=== PATIENT | female | born 1955 | race Caucasian/White ===

== ENCOUNTER 2019-07-20 18:28 | Inpatient (IN) | payer BC ==
[2019-07-20] MEDS ORDERED: Ondansetron PF 4 MG/2 ML Vial ONE (19:51)
[2019-07-20] MEDS ORDERED: Loperamide HCl 2 MG CAP ONE (20:09)
[2019-07-20 20:22] LABS: Band 5 % (5-11); Hemoglobin 15.8 g/dL (12.0-16.0); Lymphocytes 4 % (21-51); MDiff Complete? YES; Mean Corpuscular Volume 90.8 fL (78.0-98.0); Mean Platelet Volume 8.7 fL (7.4-10.4); Monocytes 5 % (0-10); Neutrophil 86 % (42-75); Platelet Count 252 thou/uL (130-400); Platelet Morphology Comment Appears Adequate; Red Blood Cell (RBC) Count 5.27 mill/uL (4.20-5.40); White Blood Cell (WBC) Count 16.3 thou/uL (4.8-10.8)
[2019-07-20] MEDS ORDERED: metroNIDAZOLE 500 MG/100 ML BAG ONE (20:43)
[2019-07-20] MEDS ORDERED: Lorazepam 2 MG/ML VIAL ONE (20:52)
[2019-07-20 20:55] LABS: ALT (SGPT) 25 U/L (8-55); AST (SGOT) 32 U/L (5-34); Albumin 4.7 g/dL (3.4-4.8); Alkaline Phosphatase 76 U/L (40-110); Anion Gap 20 mmol/L (10-20); BUN (Urea Nitrogen) 10 mg/dL (9.8-20.1); Bilirubin, Total 0.3 mg/dL (0.2-1.2); CK (CPK) 67 U/L (29-168); Calc. Creatinine Clearance 0 mL/min (70-130); Calcium 9.7 mg/dL (7.8-10.44); Carbon Dioxide 20 mmol/L (23-31); Chloride 106 mmol/L (98-107); Estimated GFR-MDRD 78; Globulin 3.5 g/dL (2.4-3.5); Glucose 137 mg/dL (80-115); Potassium 5.1 mmol/L (3.5-5.1); Protein, Total 8.2 g/dL (6.0-8.3); Sodium 141 mmol/L (136-145)
--- NOTE | 2019-07-20 21:24 | CT ---
CT of abdomen and pelvis: 07/20/2019 COMPARISON: None HISTORY: Nausea, vomiting, abdominal pain TECHNIQUE: Axial CT imaging at 5 mm intervals from lung bases through pubic symphysis with IV contras t. Coronal and sagittal reformatted imaging obtained. FINDINGS: Cholecystectomy clips are present. Imaged lung bases are unremarkable. No free intraperiton eal air or fluid. Hepatic parenchyma is hypodense, suggesting hepatic steatosis. There is a lobulated hypodense lesion within the left lobe of the liver measuring up to 3.9 cm. Its [place]oun[place] u nits suggest a mildly complex cyst. However, it is incompletely assessed on this examination and thus, follow-up hepatic mass protocol CT examination advised. The spleen, pancreas, adrenal glands, a nd kidneys demonstrate no acute findings. There is fluid within a mildly prominent stomach. Fluid-filled nondilated small bowel loops are noted within the abdomen/pelvis. The appendix is not discretely visualized but no right lower quadrant inflammatory change is seen. Th ere is sigmoid diverticulosis without evidence for diverticulitis. The vascular structures of the abdomen/pelvis appear patent. IVC filter present. There is postoperative hardware within the lower lumbar spine and traversing the sacroiliac joint on the right. No worrisome lytic or blastic bone lesion. IMPRESSION: Multiple incidental findings as detailed above. No evidence for acute intra-abdominal/pel mee pathology. CODE T
[2019-07-20] MEDS ORDERED: HYDROcodone/Acetaminophen 5/325 mg Tablet ONE (23:08)
[2019-07-20] MEDS ORDERED: Acetaminophen 500 MG TAB ONE (23:08)
[2019-07-20 23:45] LABS: Lactic Acid 4.1 mmol/L (0.5-2.2)
[2019-07-21] MEDS ORDERED: MEROPENEM 1 GM/50 ML 1 GM in Premix Bag 1 BAG IVPB SCH (00:15)
--- NOTE | 2019-07-21 00:40 | HP ---
PRIMARY CARE PROVIDER: Dr. Jensen. CHIEF COMPLAINT: Nausea, vomiting, and diarrhea. HISTORY OF PRESENT ILLNESS: This is a 63-year-old female, who presents to [facility] Emergency Department with essentially sudden onset of nausea, vomiting, abdominal cramping with diarrhea. Patient states her symptoms began abruptly approximately at 1400 hours on 07/20/2019, without warning. Patient states she traveled recently to her daughters for the holidays, but states no one in the family has similar symptoms. Patient denied taking any new medications or any recent exposure history. Patient denied any recent surgical intervention and most recently had a back procedure in March 2019. Patient denied any documented fever, chills, cough, or shortness of breath. Patient denied taking any home medication remedies. Patient states she is on chronic pain medication for her back problems including a fentanyl patch. Patient denied taking extra medications currently. In the emergency room, patient underwent CT imaging of the abdomen and pelvis showing no acute process or evidence of bowel obstruction. Patient received IV fluids x2 L in addition to Ativan 1 mg IV push, Flagyl 500 mg x1 dose, Imodium, and Zofran. The patient was noted with multiple loose bowel movements in the emergency room. Patient denied any recent antibiotic exposure. PAST MEDICAL HISTORY: 1. Chronic pain syndrome, on chronic narcotic therapy. 2. Chronic back pain. 3. Hypertension. 4. Hyperlipidemia. 5. Anxiety disorder. PAST SURGICAL HISTORY: Status post multiple back surgeries, most recently March. CURRENT MEDICATIONS: 1. Percocet 10/325 mg one tablet p.o. t.i.d. 2. Methocarbamol 750 mg p.o. t.i.d. 3. Lovastatin 40 mg p.o. daily. 4. Atenolol 50 mg p.o. b.i.d. 5. Melatonin 10 mg p.o. at bedtime. 6. Temazepam 7.5 mg p.o. b.i.d. 7. Ambien 12.5 mg p.o. daily. 8. Simethicone 180 mg p.o. daily. 9. Gabapentin 300 mg p.o. t.i.d. 10. Xarelto 15 mg p.o. daily. 11. Zofran 8 mg p.o. daily p.r.n. 12. Omeprazole 20 mg p.o. daily. 13. Fentanyl patch 25 mcg transdermally q.72 hours. ALLERGIES: CIPROFLOXACIN. FAMILY HISTORY: No inheritable diseases per patient report. SOCIAL HISTORY: Resides in the [place], [place] area. Occasional alcohol use. No illicit drug use. No tobacco use. REVIEW OF SYSTEMS: CONSTITUTIONAL: Negative for weight loss or gain, ability to conduct usual activities. SKIN: Negative for rash, itching. EYES: Negative for double vision, pain. ENT/MOUTH: Negative for nose bleeding, neck stiffness, pain, tenderness. CARDIOVASCULAR: Negative for palpitations, dyspnea on exertion, orthopnea. RESPIRATORY: Negative for shortness of breath, wheezing, cough, hemoptysis, fever or night sweats. GASTROINTESTINAL: Negative for poor appetite, abdominal pain, heartburn, nausea, vomiting, constipation, or diarrhea. GENITOURINARY: Negative for urgency, frequency, dysuria, nocturia. MUSCULOSKELETAL: Negative for pain, swelling. NEUROLOGIC/PSYCHIATRIC: Negative for anxiety, depression. ALLERGY/IMMUNOLOGIC: Negative for skin rash, bleeding tendency. Otherwise, negative, except as stated per HPI. PHYSICAL EXAMINATION: VITAL SIGNS: On admission, blood pressure 157/84, pulse 118, respiratory rate 22, temperature 98.3 degrees Fahrenheit, and O2 saturation 95% on room air. GENERAL APPEARANCE: This is a 63-year-old female, ill appearing, alert, and responsive, in moderate distress. HEENT: Pupils are equal, round, and reactive to light and accommodation. Extraocular muscles are intact. No scleral icterus. No conjunctival injection. Nares are patent. OP is clear. Oral mucosa is dry. NECK: Supple. No cervical adenopathy. No thyromegaly. No carotid bruits. No JVD appreciated. Cervical spine with full active and passive range of motion. No meningeal signs noted. CHEST: Lungs are clear to auscultation bilaterally. CARDIOVASCULAR: S1, S2 without noted murmur, rub, or gallop. ABDOMEN: Obese with mild tenderness to palpation diffusely. Bowel sounds are positive in all 4 quadrants. No palpable mass. No rebound or guarding noted. EXTREMITIES: Warm and dry with fair turgor. No clubbing, cyanosis, or asymmetric edema appreciated. Pulses palpable distally at the dorsalis pedis, posterior tibial, and popliteal arteries bilaterally. Capillary refill less than 2 seconds. NEUROLOGIC: Cranial nerves 2 through 12 are grossly intact. No focal or lateralizing signs appreciated. PERTINENT LABORATORY AND X-RAY FINDINGS: Sodium 141, potassium 5.1, chloride 106, CO2 of 20, BUN 10, creatinine 0.75, and estimated GFR of 78. Lactic acid level 3.9. Calcium 9.7. LFTs within normal limits. CBC showed a white blood cell count of 16.3, hemoglobin 15.8, hematocrit 48, and platelet count 252, with 86% neutrophils. Influenza A and B antigen dated 07/20/2019, negative. CT of the abdomen and pelvis dated 07/20/2019, showed multiple incidental findings without acute process. Please see dictated report for full details. Telemetry monitoring shows sinus tachycardia with heart rates in the low 100s. ASSESSMENT AND PLAN: 1. Sepsis secondary to gastroenteritis. The patient will be admitted to the medical floor. We will continue empiric antibiotic coverage with meropenem 1 g IV q.8 hours. Blood cultures x2 pending. Check stool studies to rule out underlying infectious process. Continue intravenous normal saline at 125 mL/h. Continue general sepsis protocol and repeat lactic acid level in 3 hours. 2. Acute gastroenteritis. Exact etiology unclear. Suspect as presumed infectious given sepsis criteria as noted in #1. Continue meropenem 1 g IV q.8 hours. Continue IV fluids as outlined previously. N.p.o., except for medications and sips of water. 3. Nausea and vomiting. Suspect secondary to sepsis secondary to gastroenteritis and acute gastroenteritis. Zofran 4 mg IV q.6 hours p.r.n. N.p.o. status. 4. Acute kidney injury. Suspect secondary to dehydration. Continue volume replacement with IV fluids and monitor serial creatinine. 5. Chronic pain syndrome. We will confirm home medication regimen. Questionable component of withdrawal symptoms. 6. Prophylaxis. SCDs while in bed. Pepcid 20 mg IV b.i.d. 7. Code status. Full. Surrogate medical decision maker is patient's son. Job ID: [id number]
[2019-07-21] MEDS ORDERED: Ondansetron ODT 4 MG TAB SL PRN (01:32)
[2019-07-21] MEDS ORDERED: Acetaminophen 325 MG TAB PO PRN (01:32)
[2019-07-21] MEDS ORDERED: HYDROcodone/Acetaminophen 5/325 mg Tablet PO PRN ×2 (01:32)
[2019-07-21] MEDS ORDERED: Labetalol HCl 100 MG/20 ML VIAL SLOW IVP PRN (01:47)
[2019-07-21] MEDS ORDERED: Sodium Chloride 0.9% 1,000 ML IV SCH (01:47)
[2019-07-21] MEDS ORDERED: Acetaminophen 500 MG TAB PO PRN (01:47)
[2019-07-21] MEDS: Sodium Chloride 0.9% 1,000 ML IV SCH ×2 (01:51→03:57)
[2019-07-21 01:53] VITALS: BMI 42.5
[2019-07-21] MEDS: Ondansetron PF 4 MG/2 ML Vial IVP PRN ×3 (02:13→16:58)
[2019-07-21 05:42] LABS: Band 5 % (5-11); Hemoglobin 13.7 g/dL (12.0-16.0); Lymphocytes 6 % (21-51); MDiff Complete? YES; Mean Corpuscular HGB CONC 33.3 g/dL (32.0-36.0); Mean Corpuscular Hemoglobin 30.5 pg (27.0-31.0); Mean Corpuscular Volume 91.7 fL (78.0-98.0); Mean Platelet Volume 8.2 fL (7.4-10.4); Metamyelocyte 1 % (0-0); Monocytes 3 % (0-10); Neutrophil 85 % (42-75); Platelet Count 210 thou/uL (130-400); Platelet Morphology Comment Appears Adequate; RBC Morphology Normal; Red Blood Cell (RBC) Count 4.49 mill/uL (4.20-5.40); White Blood Cell (WBC) Count 8.3 thou/uL (4.8-10.8)
[2019-07-21 05:47] LABS: Lactic Acid 3.2 mmol/L (0.5-2.2)
[2019-07-21 05:51] LABS: ALT (SGPT) 21 U/L (8-55); AST (SGOT) 21 U/L (5-34); Albumin 3.7 g/dL (3.4-4.8); Alkaline Phosphatase 55 U/L (40-110); Anion Gap 17 mmol/L (10-20); BUN (Urea Nitrogen) 11 mg/dL (9.8-20.1); Bilirubin, Total 0.4 mg/dL (0.2-1.2); Calc. Creatinine Clearance 172 mL/min (70-130); Calcium 8.3 mg/dL (7.8-10.44); Carbon Dioxide 20 mmol/L (23-31); Chloride 109 mmol/L (98-107); Estimated GFR-MDRD 89; Globulin 2.7 g/dL (2.4-3.5); Glucose 116 mg/dL (80-115); Potassium 3.7 mmol/L (3.5-5.1); Protein, Total 6.4 g/dL (6.0-8.3); Sodium 142 mmol/L (136-145)
--- NOTE | 2019-07-21 08:09 | PDOC.HOSPP ---
- Subjective Encounter Date: 07/21/19 Encounter Time: 08:07 Subjective: 63 y/o female with chronic back pain s/p surgery on chronic narcotics, Palpitation on atenolol admitted with acute onset of nausea, vomiting and frerquent loose stools associated with crampy abdominal pain. Patient denied fever, hematochezia and hematemesis. Vomiting has improved but nausea, abdominal pain/ and diarrhea persist. - Objective Vital Signs & Weight: Vital Signs (12 hours) Temp Pulse Resp BP Pulse Ox 07/21/19 04:11 99.1 F 113 H 18 165/70 H 94 L 07/21/19 03:06 98 07/21/19 01:30 98.5 F 116 H 20 140/77 97 Weight Weight 279 lb 14.4 oz I&O: 07/20/19 07/21/19 07/22/19 06:59 06:59 06:59 Intake Total 850 Output Total 2 Balance 848 Result Diagrams: 07/21/19 05:13 07/21/19 05:13 Hospitalist ROS - Medication Medications: Active Medications Generic Name Dose Route Start Last Admin Trade Name Freq PRN Reason Stop Dose Admin Hydrocodone Bitart/Acetaminophen 2 tab 07/21/19 01:32 07/21/19 02:15 [place] 5/325 PO 07/21/19 11:00 2 tab Q6H PRN Administration Severe Pain (7-10) Sodium Chloride 1,000 mls @ 150 mls/hr 07/21/19 01:32 07/21/19 03:57 Normal Saline 0.9% IV 07/21/19 11:00 Not Given .Q6H40M LIANNE Sodium Chloride 1,000 mls @ 125 mls/hr 07/21/19 01:47 07/21/19 02:02 Normal Saline 0.9% IV Not Given .Q8H LIANNE Ondansetron HCl 4 mg 07/21/19 01:32 07/21/19 02:13 Zofran IVP 07/21/19 11:00 4 mg Q6H PRN Administration Nausea/Vomiting - Exam General Appearance: awake alert General - other findings: obese Eye: anicteric sclera ENT: normocephalic atraumatic Neck: symmetric, no JVD Heart: RRR Heart - other findings: tachycardic Respiratory: no wheezes, no rales, no ronchi, normal chest expansion, no tachypnea Gastrointestinal: soft, non-distended, normal bowel sounds Gastrointestinal - other findings: diffuse abdominal tenderness especially lower abdomen Extremities: no cyanosis, no edema Neurological: cranial nerve grossly intact, no focal deficits, no new deficit Psychiatric: A&O x 3 Hosp A/P (1) Acute infective gastroenteritis Code(s): A09 - INFECTIOUS GASTROENTERITIS AND COLITIS, UNSPECIFIED Status: Acute (2) Metabolic acidosis Code(s): E87.2 - ACIDOSIS Status: Acute (3) Sepsis Code(s): A41.9 - SEPSIS, UNSPECIFIED ORGANISM Status: Acute (4) HTN (hypertension) Code(s): I10 - ESSENTIAL (PRIMARY) HYPERTENSION Status: Acute (5) Morbid obesity Code(s): E66.01 - MORBID (SEVERE) OBESITY DUE TO EXCESS CALORIES Status: Acute (6) Chronic back pain Code(s): M54.9 - DORSALGIA, UNSPECIFIED; G89.29 - OTHER CHRONIC PAIN Status: Acute (7) Anxiety Code(s): F41.9 - ANXIETY DISORDER, UNSPECIFIED Status: Acute (8) Palpitations Code(s): R00.2 - PALPITATIONS Status: Acute (9) DVT (deep venous thrombosis) Code(s): I82.409 - ACUTE EMBOLISM AND THOMBOS UNSP DEEP VN UNSP LOWER EXTREMITY Status: Acute - Plan Restart atenolol for tachycardia Suibstitute NS with LR due to worsening hyperchloremic acidosis Continue antibiotics Restart xarelto Antiemetic as needed Analgesic as needed Await stool cultures. Follow electrolytes and renal function.
[2019-07-21] MEDS: Lorazepam 1 MG TAB PO SCH ×2 (09:17→21:26)
[2019-07-21] MEDS: Famotidine/PF 20 mg/2ml Vial SLOW IVP SCH ×2 (09:17→21:27)
[2019-07-21] MEDS: Atenolol 50 MG TAB PO SCH ×2 (09:18→21:25)
[2019-07-21] MEDS: MEROPENEM 1 GM/50 ML 1 GM in Premix Bag 1 BAG IVPB SCH ×2 (09:29→16:54)
[2019-07-21] MEDS: Rivaroxaban 15 MG TAB PO SCH (10:18)
[2019-07-21] MEDS: oxyCODONE/Acetaminophen 5 mg/325 mg Tablet PO PRN ×2 (14:27→23:50)
[2019-07-21] MEDS: Lactated Ringer's 1,000 ML IV SCH ×2 (16:18→16:54)
[2019-07-21] MEDS ORDERED: Zolpidem Tartrate 5 MG TAB PO SCH (21:00)
[2019-07-21] MEDS: Pregabalin 75 MG CAP PO SCH (21:25)
[2019-07-21] MEDS: Melatonin 3 MG TAB PO SCH (23:15)
[2019-07-22] MEDS: MEROPENEM 1 GM/50 ML 1 GM in Premix Bag 1 BAG IVPB SCH ×3 (00:54→17:25)
[2019-07-22] MEDS: Lactated Ringer's 1,000 ML IV SCH ×3 (00:55→16:25)
[2019-07-22 05:14] LABS: ALT (SGPT) 24 U/L (8-55); AST (SGOT) 30 U/L (5-34); Albumin 3.4 g/dL (3.4-4.8); Alkaline Phosphatase 46 U/L (40-110); Anion Gap 12 mmol/L (10-20); BUN (Urea Nitrogen) 7 mg/dL (9.8-20.1); Bilirubin, Total 0.3 mg/dL (0.2-1.2); Calc. Creatinine Clearance 183 mL/min (70-130); Calcium 8.3 mg/dL (7.8-10.44); Carbon Dioxide 25 mmol/L (23-31); Chloride 108 mmol/L (98-107); Estimated GFR-MDRD Greater than 90; Globulin 2.3 g/dL (2.4-3.5); Glucose 87 mg/dL (80-115); Magnesium 1.5 mg/dL (1.6-2.6); Phosphorus 2.4 mg/dL (2.3-4.7); Potassium 3.2 mmol/L (3.5-5.1); Protein, Total 5.7 g/dL (6.0-8.3); Sodium 142 mmol/L (136-145)
[2019-07-22] MEDS: Ondansetron ODT 4 MG TAB PO PRN ×2 (07:40→16:02)
[2019-07-22] MEDS ORDERED: Magnesium Sulfate 4 GM in Sodium Chloride 0.9% 250 ML 250 ML IVPB SCH (08:00)
[2019-07-22] MEDS: Lorazepam 1 MG TAB PO SCH ×2 (08:59→20:13)
[2019-07-22] MEDS: Pregabalin 75 MG CAP PO SCH ×3 (08:59→20:15)
[2019-07-22] MEDS: Rivaroxaban 15 MG TAB PO SCH (08:59)
[2019-07-22] MEDS: Famotidine/PF 20 mg/2ml Vial SLOW IVP SCH ×2 (09:00→20:13)
[2019-07-22] MEDS: Atenolol 50 MG TAB PO SCH ×2 (09:00→20:13)
[2019-07-22 09:49] LABS: Lactic Acid 1.3 mmol/L (0.5-2.2)
[2019-07-22] MEDS: oxyCODONE/Acetaminophen 5 mg/325 mg Tablet PO PRN ×2 (10:22→20:11)
--- NOTE | 2019-07-22 14:12 | PDOC.HOSPP ---
- Subjective Encounter Date: 07/22/19 Encounter Time: 14:08 Subjective: 63 y/o female with chronic back pain s/p surgery on chronic narcotics, palpitation on atenolol admitted with acute onset of nausea, vomiting and frequent loose stools associated with crampy abdominal pain. Feeling better but still having loose stools at reduced frequency. Patient denied fever, hematochezia and hematemesis. - Objective Vital Signs & Weight: Vital Signs (12 hours) Temp Pulse Resp BP Pulse Ox 07/22/19 11:41 98.6 F 62 14 136/64 94 L 07/22/19 09:00 82 07/22/19 07:25 98.6 F 82 18 142/65 H 92 L Weight Weight 279 lb 14.4 oz I&O: 07/21/19 07/22/19 07/23/19 06:59 06:59 06:59 Intake Total 850 3390 Output Total 2 Balance 848 3390 Result Diagrams: 07/21/19 05:13 07/22/19 04:35 Hospitalist ROS - Medication Medications: Active Medications Generic Name Dose Route Start Last Admin Trade Name Eleazarq PRN Reason Stop Dose Admin Atenolol 50 mg 07/21/19 09:00 07/22/19 09:00 Tenormin PO 50 mg BID LIANNE Administration Famotidine 20 mg 07/21/19 09:00 07/22/19 09:00 Pepcid SLOW IVP 20 mg Q12HR LIANNE Administration Fentanyl 12 mcg 07/21/19 08:30 07/21/19 09:19 Duragesic TD Not Given Q3D LIANNE Meropenem 1 gm/ Device 50 mls @ 100 mls/hr 07/21/19 09:00 07/22/19 08:59 IVPB 50 mls 0100,0900,1700 LIANNE Administration Lactated Ringer's 1,000 mls @ 50 mls/hr 07/22/19 07:59 07/22/19 09:00 Lactated Ringer's IV Not Given .Q20H LIANNE Lorazepam 1 mg 07/21/19 09:00 07/22/19 08:59 Ativan PO 1 mg BID LIANNE Administration Melatonin 9 mg 07/21/19 21:00 07/21/19 23:15 Melatonin PO Not Given QPM LIANNE Ondansetron HCl 4 mg 07/21/19 01:47 07/22/19 07:40 Zofran Odt PO 4 mg Q6H PRN Administration Nausea/Vomiting Ondansetron HCl 4 mg 07/21/19 01:47 07/21/19 16:58 Zofran IVP 4 mg Q6H PRN Administration Nausea/Vomiting Oxycodone/Acetaminophen 1 tab 07/21/19 08:28 07/22/19 10:22 Percocet 5/325 PO 1 tab TID PRN Administration Mild-Moderate Pain (1-5) Potassium Chloride 40 meq 07/22/19 12:00 07/22/19 12:47 Klor-Con PO 07/22/19 18:01 40 meq Q6HR LIANNE Administration Pregabalin 75 mg 07/21/19 21:00 07/22/19 08:59 Lyrica PO 75 mg TID LIANNE Administration Rivaroxaban 15 mg 07/21/19 09:00 07/22/19 08:59 Xarelto PO 15 mg DAILY LIANNE Administration Sodium Chloride 10 ml 07/21/19 21:00 07/22/19 09:01 Flush - Normal Saline IVF 10 ml Q12HR LIANNE Administration - Exam General Appearance: awake alert General - other findings: obese Eye: anicteric sclera ENT: normocephalic atraumatic, moist mucosa Neck: symmetric, no JVD Heart: RRR Respiratory: no wheezes, no ronchi, normal chest expansion, no tachypnea Gastrointestinal: soft, non-tender, non-distended, normal bowel sounds Extremities: no cyanosis, no edema Neurological: cranial nerve grossly intact, no focal deficits Psychiatric: A&O x 3 Hosp A/P (1) Acute infective gastroenteritis Code(s): A09 - INFECTIOUS GASTROENTERITIS AND COLITIS, UNSPECIFIED Status: Acute (2) Metabolic acidosis Code(s): E87.2 - ACIDOSIS Status: Acute (3) Sepsis Code(s): A41.9 - SEPSIS, UNSPECIFIED ORGANISM Status: Acute (4) HTN (hypertension) Code(s): I10 - ESSENTIAL (PRIMARY) HYPERTENSION Status: Acute (5) Morbid obesity Code(s): E66.01 - MORBID (SEVERE) OBESITY DUE TO EXCESS CALORIES Status: Acute (6) Chronic back pain Code(s): M54.9 - DORSALGIA, UNSPECIFIED; G89.29 - OTHER CHRONIC PAIN Status: Acute (7) Anxiety Code(s): F41.9 - ANXIETY DISORDER, UNSPECIFIED Status: Acute (8) Palpitations Code(s): R00.2 - PALPITATIONS Status: Acute (9) DVT (deep venous thrombosis) Code(s): I82.409 - ACUTE EMBOLISM AND THOMBOS UNSP DEEP VN UNSP LOWER EXTREMITY Status: Acute (10) Hypokalemia Code(s): E87.6 - HYPOKALEMIA Status: Acute - Plan Replete serum potassium with oral KCL Replete serum magnesium wiyth magnesium sulphate Continue atenolol for tachycardia Advance diet as tolerated DC IV fluid Continue antibiotics Continue xarelto Antiemetic and analgesic as needed Follow electrolytes and renal function.
[2019-07-22] MEDS: Melatonin 3 MG TAB PO SCH (20:14)
[2019-07-22] MEDS: Zolpidem Tartrate 5 MG TAB PO SCH (20:15)
[2019-07-23] MEDS: MEROPENEM 1 GM/50 ML 1 GM in Premix Bag 1 BAG IVPB SCH (02:00)
[2019-07-23] MEDS: Ondansetron PF 4 MG/2 ML Vial IVP PRN ×2 (02:28→09:13)
[2019-07-23] MEDS: oxyCODONE/Acetaminophen 5 mg/325 mg Tablet PO PRN ×3 (04:15→22:16)
[2019-07-23 04:54] LABS: Hemoglobin 13.3 g/dL (12.0-16.0); Mean Corpuscular Hemoglobin 29.6 pg (27.0-31.0); Mean Corpuscular Volume 92.4 fL (78.0-98.0); Mean Platelet Volume 7.7 fL (7.4-10.4); Platelet Count 195 thou/uL (130-400); RBC Distribution Width 11.7 % (11.5-14.5); Red Blood Cell (RBC) Count 4.48 mill/uL (4.20-5.40); White Blood Cell (WBC) Count 5.9 thou/uL (4.8-10.8)
[2019-07-23 05:14] LABS: Albumin 3.7 g/dL (3.4-4.8); Anion Gap 13 mmol/L (10-20); BUN (Urea Nitrogen) 6 mg/dL (9.8-20.1); BUN/Creatinine Ratio 9.38; Calc. Creatinine Clearance 180 mL/min (70-130); Calcium 8.7 mg/dL (7.8-10.44); Carbon Dioxide 26 mmol/L (23-31); Chloride 105 mmol/L (98-107); Estimated GFR-MDRD Greater than 90; Glucose 93 mg/dL (80-115); Phosphorus 2.5 mg/dL (2.3-4.7); Potassium 3.9 mmol/L (3.5-5.1); Sodium 140 mmol/L (136-145)
[2019-07-23] MEDS: metroNIDAZOLE 500 MG TAB PO SCH ×3 (09:08→20:31)
[2019-07-23] MEDS: Rivaroxaban 15 MG TAB PO SCH (09:08)
[2019-07-23] MEDS: Atenolol 50 MG TAB PO SCH ×2 (09:08→20:32)
[2019-07-23] MEDS: AMOXicillin 250 MG CAP PO SCH ×3 (09:08→20:30)
[2019-07-23] MEDS: Lorazepam 1 MG TAB PO SCH ×2 (09:08→20:32)
[2019-07-23] MEDS: Pregabalin 75 MG CAP PO SCH ×3 (09:08→20:30)
--- NOTE | 2019-07-23 15:49 | PDOC.HOSPP ---
- Subjective Encounter Date: 07/23/19 Encounter Time: 08:47 Subjective: 63 y/o female with chronic back pain s/p surgery on chronic narcotics, palpitation on atenolol admitted with acute onset of nausea, vomiting and frequent loose stools associated with crampy abdominal pain. Stool consistency and frequency are improving. Patient denied fever, hematochezia and hematemesis. - Objective Vital Signs & Weight: Vital Signs (12 hours) Temp Pulse Resp BP BP Pulse Ox 07/23/19 12:55 98.5 F 88 18 131/60 96 07/23/19 09:08 62 141/65 H 07/23/19 09:00 98.3 F 58 L 18 143/66 H 95 07/23/19 08:00 99 Weight Weight 279 lb 14.4 oz I&O: 07/22/19 07/23/19 07/24/19 06:59 06:59 06:59 Intake Total 3390 4427 Output Total 1500 Balance 3390 2927 Result Diagrams: 07/23/19 04:36 07/23/19 04:36 Hospitalist ROS - Medication Medications: Active Medications Generic Name Dose Route Start Last Admin Trade Name Freq PRN Reason Stop Dose Admin Amoxicillin 500 mg 07/23/19 09:00 07/23/19 15:42 Amoxil PO 500 mg TID LIANNE Administration Atenolol 50 mg 07/21/19 09:00 07/23/19 09:08 Tenormin PO 50 mg BID LIANNE Administration Fentanyl 12 mcg 07/21/19 08:30 07/21/19 09:19 Duragesic TD Not Given Q3D LIANNE Lorazepam 1 mg 07/21/19 09:00 07/23/19 09:08 Ativan PO 1 mg BID LIANNE Administration Melatonin 9 mg 07/21/19 21:00 07/22/19 20:14 Melatonin PO 9 mg QPM LIANNE Administration Metronidazole 500 mg 07/23/19 09:00 07/23/19 15:43 Flagyl PO 500 mg TID LIANNE Administration Ondansetron HCl 4 mg 07/21/19 01:47 07/22/19 16:02 Zofran Odt PO 4 mg Q6H PRN Administration Nausea/Vomiting Ondansetron HCl 4 mg 07/21/19 01:47 07/23/19 09:13 Zofran IVP 4 mg Q6H PRN Administration Nausea/Vomiting Oxycodone/Acetaminophen 1 tab 07/21/19 08:28 07/23/19 13:13 Percocet 5/325 PO 1 tab TID PRN Administration Mild-Moderate Pain (1-5) Pregabalin 75 mg 07/21/19 21:00 07/23/19 15:43 Lyrica PO 75 mg TID LIANNE Administration Rivaroxaban 15 mg 07/21/19 09:00 07/23/19 09:08 Xarelto PO 15 mg DAILY LIANNE Administration Sodium Chloride 10 ml 07/21/19 21:00 07/23/19 09:12 Flush - Normal Saline IVF Not Given Q12HR LIANNE Zolpidem Tartrate 10 mg 07/22/19 21:00 07/22/19 20:15 Ambien PO 10 mg QPM LIANNE Administration - Exam General Appearance: awake alert Eye: anicteric sclera ENT: normocephalic atraumatic Neck: symmetric, no JVD Heart: RRR Respiratory: no wheezes, no rales, no ronchi, normal chest expansion Gastrointestinal: soft, non-distended, normal bowel sounds Gastrointestinal - other findings: mild upper quadrant tenderness Extremities: no cyanosis, no edema Neurological: cranial nerve grossly intact, normal sensation to touch, no focal deficits Psychiatric: A&O x 3 Hosp A/P (1) Acute infective gastroenteritis Code(s): A09 - INFECTIOUS GASTROENTERITIS AND COLITIS, UNSPECIFIED Status: Acute (2) Metabolic acidosis Code(s): E87.2 - ACIDOSIS Status: Acute (3) Sepsis Code(s): A41.9 - SEPSIS, UNSPECIFIED ORGANISM Status: Acute (4) HTN (hypertension) Code(s): I10 - ESSENTIAL (PRIMARY) HYPERTENSION Status: Acute (5) Morbid obesity Code(s): E66.01 - MORBID (SEVERE) OBESITY DUE TO EXCESS CALORIES Status: Acute (6) Chronic back pain Code(s): M54.9 - DORSALGIA, UNSPECIFIED; G89.29 - OTHER CHRONIC PAIN Status: Acute (7) Anxiety Code(s): F41.9 - ANXIETY DISORDER, UNSPECIFIED Status: Acute (8) Palpitations Code(s): R00.2 - PALPITATIONS Status: Acute (9) DVT (deep venous thrombosis) Code(s): I82.409 - ACUTE EMBOLISM AND THOMBOS UNSP DEEP VN UNSP LOWER EXTREMITY Status: Acute (10) Hypokalemia Code(s): E87.6 - HYPOKALEMIA Status: Acute - Plan DC IVF and IV antibiotic Start oral amoxicilin and flagyl Start regular diet. Continue xarelto Antiemetic and analgesic as needed Follow electrolytes and renal function. For discharge tomorrow if doing well on current treatments
[2019-07-23] MEDS: Ondansetron ODT 4 MG TAB PO PRN (18:13)
[2019-07-23] MEDS: Melatonin 3 MG TAB PO SCH (20:31)
[2019-07-24] MEDS: Zolpidem Tartrate 5 MG TAB PO SCH (00:20)
[2019-07-24] MEDS: Ondansetron ODT 4 MG TAB PO PRN (05:08)
[2019-07-24 05:49] LABS: Hemoglobin 13.2 g/dL (12.0-16.0); Mean Corpuscular HGB CONC 30.7 g/dL (32.0-36.0); Mean Corpuscular Hemoglobin 28.2 pg (27.0-31.0); Mean Corpuscular Volume 91.9 fL (78.0-98.0); Mean Platelet Volume 7.8 fL (7.4-10.4); Platelet Count 221 thou/uL (130-400); RBC Distribution Width 11.8 % (11.5-14.5); Red Blood Cell (RBC) Count 4.67 mill/uL (4.20-5.40); White Blood Cell (WBC) Count 7.5 thou/uL (4.8-10.8)
[2019-07-24 05:52] LABS: Anion Gap 12 mmol/L (10-20); BUN (Urea Nitrogen) 11 mg/dL (9.8-20.1); Calc. Creatinine Clearance 183 mL/min (70-130); Calcium 9.1 mg/dL (7.8-10.44); Carbon Dioxide 28 mmol/L (23-31); Chloride 105 mmol/L (98-107); Estimated GFR-MDRD Greater than 90; Glucose 94 mg/dL (80-115); Magnesium 1.9 mg/dL (1.6-2.6); Potassium 3.9 mmol/L (3.5-5.1); Sodium 141 mmol/L (136-145)
[2019-07-24 07:59] VITALS: BP 135/60; TEMP 98.2
[2019-07-24] MEDS: metroNIDAZOLE 500 MG TAB PO SCH (08:29)
[2019-07-24] MEDS: Atenolol 50 MG TAB PO SCH (08:29)
[2019-07-24] MEDS: Pregabalin 75 MG CAP PO SCH (08:30)
[2019-07-24] MEDS: Lorazepam 1 MG TAB PO SCH (08:31)
[2019-07-24] MEDS: Rivaroxaban 15 MG TAB PO SCH (08:32)
[2019-07-24] MEDS: AMOXicillin 250 MG CAP PO SCH (08:32)
== END 2019-07-24 10:29 | disposition home or self-care (01) | DRG 872 ==
LOC: ERS 18:28 → ONC 07-21 01:32
PROVIDERS: ADMIT Family Medicine; ATTEND Family Medicine
DX: A41.9 Sepsis, unspecified organism (principal); N17.9 Acute kidney failure, unspecified; E87.2 Acidosis; Z68.41 Body mass index [BMI] 40.0-44.9, adult; A09 Infectious gastroenteritis and colitis, unspecified; I10 Essential (primary) hypertension; E78.5 Hyperlipidemia, unspecified; F41.9 Anxiety disorder, unspecified; E86.0 Dehydration; G89.4 Chronic pain syndrome; E66.01 Morbid (severe) obesity due to excess calories; E87.6 Hypokalemia; Z88.1 Allergy status to other antibiotic agents; Z90.49 Acquired absence of other specified parts of digestive tract; Z86.718 Personal history of other venous thrombosis and embolism; Z79.01 Long term (current) use of anticoagulants; Z98.1 Arthrodesis status
CPT/HCPCS: 36415; 74177; 80048; 80053; 80069; 82274; 82550; 83605; 83630; 83735; 84100; 85007; 85025; 85027; 87045; 87046; 87324; 87427; 87449; 87804; 96361; 96365; 96367; 96375; J2060; J2185; J2405; J3475; J7050; Q0162; S0028

== ENCOUNTER 2019-12-27 14:32 | Outpatient (CLI) | payer BC ==
--- NOTE | 2019-12-27 15:28 | MMO ---
Right Breast MAMMO Unilat Diag DDI RT+ALEXIS. CLINICAL HISTORY: Patient is 64 years old and is seen for follow-up at short-interval from prior study. The patient has the following family history of breast cancer: sister, malignant (generic), LUNG, LIVER AND BRAIN and sister, malignant (generic), X2. The patient has no personal history of cancer. VIEWS: The views performed were: right craniocaudal with tomosynthesis; right mediolateral oblique with tomosynthesis; and right mediolateral with tomosynthesis. FILMS COMPARED: The present examination has been compared to prior imaging studies performed at [facility] on 06/01/2019, 06/12/2019 and 12/27/2019. This study has been interpreted with the assistance of computer-aided detection. MAMMOGRAM FINDINGS: There are scattered fibroglandular densities. There are no suspicious masses, suspicious calcifications, or new areas of architectural distortion. IMPRESSION: THERE IS NO MAMMOGRAPHIC EVIDENCE OF MALIGNANCY. A ROUTINE FOLLOW-UP MAMMOGRAM IN 6 MONTHS IS RECOMMENDED. THE RESULTS OF THIS EXAM WERE SENT TO THE PATIENT. ACR BI-RADS Category 2 - Benign finding MAMMOGRAPHY NOTE: 1. A negative mammogram report should not delay a biopsy if a dominant of clinically suspicious mass is present. 2. Approximately 10% to 15% of breast cancers are not detected by mammography. 3. Adenosis and dense breasts may obscure an underlying neoplasm. Reported by: LENY MURDOCK MD Electonically Signed: [id number]
--- NOTE | 2019-12-27 16:01 | ULT ---
RIGHT BREAST ULTRASOUND: HISTORY: Followup. FINDINGS: Correlation is made with mammogram of today and 06/12/2019. Comparison is made with the ultrasound o f 06/12/2019. Sonographic evaluation of the right breast between the 10 and 11 o'clock positions demonstrates a few small cysts about 5 cm from the nipple which are stable. IMPRESSION: BIRADS category 2 - benign findings. Return to annual screening mammography due in 6 months.
== END 2019-12-27 14:33 | disposition home or self-care (01) ==
LOC: BICMAMMO 14:32
PROVIDERS: ATTEND Family Medicine
DX: N63.10 Unspecified lump in the right breast, unspecified quadrant (principal)
CPT/HCPCS: 77066; G0279

== ENCOUNTER 2019-12-27 15:51 | Outpatient (CLI) | payer BC ==
--- NOTE | 2019-12-27 16:22 | RAD ---
EXAM: XR Lumbar Spine Min 4 View PROVIDED CLINICAL HISTORY: Sacroiliitis. History of low back surgery in surgery of pelvis. COMPARISON: None FINDINGS: Postoperative changes related to anterior as well as posterior fusion are seen involving the L4-5 and L5-S1 levels. Bipedicular screws and posterior rods transfix this level with anterior screws also present. Intradiscal prostheses are present at these levels. There are 3 metallic bars transfixing th e right sacroiliac joint. Slight retrolisthesis of L2 on L3 and L3 on L4 is present. There is correction of the retrolisthesis at the L2-3 level on flexion compared to extension. There is slight grade 1 anterolisthesis of L4 and L5. Vertebral body heights are within normal limits. No fracture is seen. IVC filter is noted in place at the L3-4 level. Surgical clips overlie the right upper quadr ant. IMPRESSION: 1. Postoperative changes lumbar spine and involving the right sacroiliac joint. 2. Slight retrolisthesis of L2 on L3 and L3 on L4 with slight grade 1 anterolisthesis of L4 on L5.
== END 2019-12-27 15:52 | disposition home or self-care (01) ==
LOC: BICRAD 15:51
PROVIDERS: ATTEND Orthopaedic Surgery
DX: M46.1 Sacroiliitis, not elsewhere classified (principal); M43.16 Spondylolisthesis, lumbar region; Z98.1 Arthrodesis status
CPT/HCPCS: 72110

== ENCOUNTER 2020-07-07 15:55 | Outpatient (CLI) | payer BC ==
--- NOTE | 2020-07-07 16:45 | MMO ---
Bilateral MAMMO Bilat Screen DDI+ALEXIS. CLINICAL HISTORY: Patient is 64 years old and is seen for screening. The patient has the following family history of breast cancer: sister, malignant (generic), LUNG, LIVER AND BRAIN and sister, malignant (generic), X2. The patient has no personal history of cancer. VIEWS: The views performed were: bilateral craniocaudal with tomosynthesis and bilateral mediolateral oblique with tomosynthesis. FILMS COMPARED: The present examination has been compared to prior imaging studies performed at [facility] on 06/12/2019 and 12/27/2019. This study has been interpreted with the assistance of computer-aided detection. MAMMOGRAM FINDINGS: There are scattered fibroglandular densities. Benign calcifications are noted bilaterally. Focal asymmetry in the right upper outer breast is stable. There are no suspicious masses, suspicious calcifications, or new areas of architectural distortion. IMPRESSION: THERE IS NO MAMMOGRAPHIC EVIDENCE OF MALIGNANCY. A ROUTINE FOLLOW-UP MAMMOGRAM IN 1 YEAR IS RECOMMENDED. THE RESULTS OF THIS EXAM WERE SENT TO THE PATIENT. ACR BI-RADS Category 2 - Benign finding MAMMOGRAPHY NOTE: 1. A negative mammogram report should not delay a biopsy if a dominant of clinically suspicious mass is present. 2. Approximately 10% to 15% of breast cancers are not detected by mammography. 3. Adenosis and dense breasts may obscure an underlying neoplasm. Reported by: LENY MURDOCK MD Electonically Signed: [id number]
== END 2020-07-07 15:56 | disposition home or self-care (01) ==
LOC: BICMAMMO 15:55
PROVIDERS: ATTEND Family Medicine
DX: Z12.31 Encounter for screening mammogram for malignant neoplasm of breast (principal); Z80.3 Family history of malignant neoplasm of breast
CPT/HCPCS: 77063; 77067

== ENCOUNTER 2021-07-09 14:59 | Outpatient (CLI) | payer MEDICARE | END 2021-07-09 15:00 | disposition home or self-care (01) | LOC: BICMAMMO 14:59 | PROVIDERS: ATTEND Family Medicine | DX: Z12.31 Encounter for screening mammogram for malignant neoplasm of breast (principal); Z13.820 Encounter for screening for osteoporosis; Z80.3 Family history of malignant neoplasm of breast; N95.9 Unspecified menopausal and perimenopausal disorder | CPT/HCPCS: 77063; 77067; 77080 ==

== ENCOUNTER 2021-07-30 23:20 | Emergency (ER) | payer MEDICARE ==
[2021-07-31 00:19] LABS: #Eosinphils 0.1 thou/uL (0.0-0.7); #Lymphocytes 2.5 thou/uL (1.20-3.40); #Monocytes 0.7 thou/uL (0.11-0.59); %Basophils 0.5 % (0.0-1.0); %Eosinophils 1.1 % (0.0-10.0); %Lymphocytes 39.8 % (21.0-51.0); %Monocytes 11.5 % (0.0-10.0); %Neutrophils 47.1 % (42.0-75.0); Hemoglobin 13.8 g/dL (12.0-16.0); Mean Corpuscular HGB CONC 34.3 g/dL (32.0-36.0); Mean Corpuscular Hemoglobin 32.2 pg (27.0-31.0); Mean Platelet Volume 7.8 fL (7.4-10.4); Platelet Count 262 thou/uL (130-400); RBC Distribution Width 11.9 % (11.5-14.5); Red Blood Cell (RBC) Count 4.27 mill/uL (4.20-5.40); White Blood Cell (WBC) Count 6.3 thou/uL (4.8-10.8)
[2021-07-31 00:36] LABS: ALT (SGPT) 21 U/L (8-55); AST (SGOT) 22 U/L (5-34); Albumin 3.8 g/dL (3.4-4.8); Alkaline Phosphatase 59 U/L (40-110); Anion Gap 16 mmol/L (10-20); BUN (Urea Nitrogen) 7 mg/dL (9.8-20.1); Bilirubin, Total 0.2 mg/dL (0.2-1.2); Calc. Creatinine Clearance 0 mL/min (70-130); Calcium 9.2 mg/dL (7.8-10.44); Carbon Dioxide 25 mmol/L (23-31); Chloride 104 mmol/L (98-107); Globulin 2.9 g/dL (2.4-3.5); Glucose 100 mg/dL (80-115); Potassium 4.6 mmol/L (3.5-5.1); Protein, Total 6.7 g/dL (5.8-8.1); Sodium 140 mmol/L (136-145)
== END 2021-07-31 00:16 | disposition home or self-care (01) ==
LOC: ERS 23:20
DX: U07.1 COVID-19 (principal); G43.909 Migraine, unspecified, not intractable, without status migrainosus
CPT/HCPCS: 36415; 71045; 80053; 83880; 84484; 85025; 93005

== ENCOUNTER 2021-09-29 16:12 | Outpatient (CLI) | payer MEDICARE | END 2021-09-29 16:13 | disposition home or self-care (01) | LOC: RAD 16:12 | PROVIDERS: ATTEND Nurse Practitioner Family | DX: M48.061 Spinal stenosis, lumbar region without neurogenic claudication (principal); M47.816 Spondylosis without myelopathy or radiculopathy, lumbar region; M43.16 Spondylolisthesis, lumbar region; M51.36 Other intervertebral disc degeneration, lumbar region; Z98.890 Other specified postprocedural states | CPT/HCPCS: 72110; 72170 ==

== ENCOUNTER 2021-11-24 13:58 | Outpatient (CLI) | payer MEDICARE | END 2021-11-24 13:59 | disposition home or self-care (01) | LOC: BICRAD 13:58 | PROVIDERS: ATTEND Family Medicine | DX: Z01.818 Encounter for other preprocedural examination (principal); Z01.812 Encounter for preprocedural laboratory examination; Z79.899 Other long term (current) drug therapy | CPT/HCPCS: 36415; 71046; 80053; 81001; 85025; 85610; 85730; 87086 ==

== ENCOUNTER 2022-04-19 12:35 | Outpatient (CLI) | payer MEDICARE | END 2022-04-19 12:36 | disposition home or self-care (01) | LOC: BICCT 12:35 | PROVIDERS: ATTEND Physician Assistant | DX: Z47.89 Encounter for other orthopedic aftercare (principal); M48.061 Spinal stenosis, lumbar region without neurogenic claudication; M47.815 Spondylosis without myelopathy or radiculopathy, thoracolumbar region; M47.816 Spondylosis without myelopathy or radiculopathy, lumbar region; M24.28 Disorder of ligament, vertebrae; M47.817 Spondylosis without myelopathy or radiculopathy, lumbosacral region; M96.69 Fracture of other bone following insertion of orthopedic implant, joint prosthesis, or bone plate; Z98.1 Arthrodesis status | CPT/HCPCS: 72131 ==

== ENCOUNTER 2022-05-04 12:19 | Outpatient (CLI) | payer MEDICARE | END 2022-05-04 12:20 | disposition home or self-care (01) | LOC: MRI 12:19 | PROVIDERS: ATTEND Physician Assistant | DX: Z47.89 Encounter for other orthopedic aftercare (principal); Z98.1 Arthrodesis status | CPT/HCPCS: 72148 ==

== ENCOUNTER 2022-05-21 07:58 | Outpatient (CLI) | payer MEDICARE | END 2022-05-21 07:59 | disposition home or self-care (01) | LOC: BICRAD 07:58 | PROVIDERS: ATTEND Family Medicine | DX: Z47.89 Encounter for other orthopedic aftercare (principal); I10 Essential (primary) hypertension; Z98.1 Arthrodesis status | CPT/HCPCS: 71046; 72100 ==

== ENCOUNTER 2022-10-18 09:22 | Outpatient (CLI) | payer MEDICARE | END 2022-10-18 09:23 | disposition home or self-care (01) | LOC: BICRAD 09:22 | PROVIDERS: ATTEND Orthopaedic Surgery | DX: Z47.89 Encounter for other orthopedic aftercare (principal); Z98.1 Arthrodesis status | CPT/HCPCS: 72100 ==

== ENCOUNTER 2023-07-01 14:02 | Outpatient (CLI) | payer MEDICARE ==
[~2023-07-01 14:02] MED LIST: Iopamidol 370 76% 100 ML VIAL ONE
== END 2023-07-01 14:03 | disposition home or self-care (01) ==
LOC: BICCT 14:02
PROVIDERS: ATTEND Family Medicine
DX: R10.84 Generalized abdominal pain (principal); K57.30 Diverticulosis of large intestine without perforation or abscess without bleeding; K76.89 Other specified diseases of liver; Z98.890 Other specified postprocedural states
CPT/HCPCS: 74178; 82565

== ENCOUNTER 2023-08-05 11:34 | Outpatient (CLI) | payer MEDICARE | END 2023-08-05 11:35 | disposition home or self-care (01) | LOC: BICMAMMO 11:34 | PROVIDERS: ATTEND Family Medicine | DX: Z12.31 Encounter for screening mammogram for malignant neoplasm of breast (principal); Z80.3 Family history of malignant neoplasm of breast | CPT/HCPCS: 77063; 77067 ==

== ENCOUNTER 2023-08-24 15:23 | Outpatient (CLI) | payer MEDICARE | END 2023-08-24 15:24 | disposition home or self-care (01) | LOC: BICMAMMO 15:23 | PROVIDERS: ATTEND Family Medicine | DX: Z13.820 Encounter for screening for osteoporosis (principal); Z78.0 Asymptomatic menopausal state | CPT/HCPCS: 77080 ==